=== PATIENT | female | born 2000 | race Caucasian/White ===

== ENCOUNTER 2019-08-28 15:51 | Emergency (ER) | payer SELFPAY ==
[~2019-08-28] VITALS: Ht 157.5 cm; Wt 59.0 kg
[2019-08-28 16:08] VITALS: Ht 157.5 cm; Wt 59.0 kg
[2019-08-28 17:42] VITALS: BP 120/65
== END 2019-08-28 17:42 | disposition home or self-care (01) ==
LOC: ED 15:51
DX: R51 Headache (principal)
CPT/HCPCS: J0780; J1885